=== PATIENT | female | born 1995 | race Caucasian/White ===

== ENCOUNTER 2018-03-08 11:06 | Emergency (ER) | payer BC ==
[~2018-03-08] VITALS: Ht 175.3 cm; Wt 64.5 kg
[~2018-03-08 11:06] MED LIST: ZOFRAN ODT4 MG PO
[2018-03-08 11:14] VITALS: TEMP 99.2
[2018-03-08 11:34] LABS: COLLECTION METHOD CLEAN CATCH
[2018-03-08] MEDS ORDERED: LIALDA 1.2 GM1.2 GM PO (11:40)
[2018-03-08 11:42] LABS: MUCOUS Present /lpf; PH 6 (5-8); SQUAMOUS EPITHELIAL 20-50 /hpf; URINE APPEARANCE Cloudy; URINE BACTERIA Rare /hpf; URINE BILIRUBIN Negative (NEGATIVE); URINE BLOOD 1+ (NEGATIVE); URINE COLOR Yellow; URINE GLUCOSE Negative (NEGATIVE); URINE KETONE Trace (NEGATIVE); URINE LEUKOCYTE ESTERASE 2+ (NEGATIVE); URINE NITRATE Negative (NEGATIVE); URINE PROTEIN(semi-quant) 2+ (NEGATIVE); URINE UROBILINOGEN Negative (NEGATIVE)
[2018-03-08 11:46] LABS: BASO # 0.1 (0.0-0.2); BASO % 0.6 % (0.0-2.0); EOS # 0.9 (0.0-0.7); EOS % 6.4 % (0-4.0); GRAN # 9.7 (1.4-6.5); GRAN % 69.4 % (42.2-75.2); HEMATOCRIT 36.6 % (37.0-47.0); HEMOGLOBIN 12.5 g/dl (12.5-16.0); LYMPH % 14.6 % (20.0-51.0); MEAN CELL VOLUME 91 fl (80.0-100.0); MEAN CORPUSCULAR HEMOGLOBIN 31 pg (27.0-31.0); MEAN CORPUSCULAR HGB CONC 34 g/dl (33.0-37.0); MEAN PLATELET VOLUME 9.1 fl (7.4-10.4); MONO # 1.2 (0.1-0.6); MONO % 8.5 % (1.7-9.3); PLATELET COUNT 356 K/mm3 (130-400); RED BLOOD COUNT 4.01 M/mm3 (4.10-5.30); REDCELL DISTRIBUTION WIDTH-CV 12.2 % (11.5-14.5)
[2018-03-08 12:00] LABS: LIPASE < 10 U/L (23-300)
[2018-03-08 12:01] LABS: ALANINE AMINOTRANSFERASE 26 U/L (9-52); ALBUMIN 3.6 gm/dL (3.5-5.0); ALKALINE PHOSPHATASE 81 U/L (50-136); ANION GAP 13 mmol/L (7-16); AST,SGOT 21 U/L (15-37); BILIRUBIN,TOTAL 0.5 mg/dL (0.0-1.0); BLOOD UREA NITROGEN 6 mg/dL (7-17); C-REACTIVE PROTEIN 4.9 mg/dL (0.0-0.9); CALCIUM 8.7 mg/dL (8.4-10.2); CARBON DIOXIDE 26 mmol/L (22-30); CHLORIDE 101 mmol/L (98-107); CREATININE, serum 0.87 mg/dL (0.52-1.25); GLUCOSE 91 mg/dL (74-106); POTASSIUM 3.3 mmol/L (3.4-5.0); SODIUM 140 mmol/L (137-145); TOTAL PROTEIN 7.5 gm/dL (6.4-8.2)
[2018-03-08 12:29] LABS: BASO % 0.4 % (0.0-2.0); EOS # 0.8 (0.0-0.7); GRAN # 7.6 (1.4-6.5); GRAN % 66.4 % (42.2-75.2); HEMOGLOBIN 10.7 g/dl (12.5-16.0); LYMPH # 1.9 (1.2-3.4); MEAN CELL VOLUME 94 fl (80.0-100.0); MEAN CORPUSCULAR HEMOGLOBIN 32 pg (27.0-31.0); MEAN CORPUSCULAR HGB CONC 34 g/dl (33.0-37.0); MEAN PLATELET VOLUME 9.3 fl (7.4-10.4); MONO % 8.8 % (1.7-9.3); PLATELET COUNT 295 K/mm3 (130-400); RED BLOOD COUNT 3.32 M/mm3 (4.10-5.30); REDCELL DISTRIBUTION WIDTH-CV 12.1 % (11.5-14.5)
[2018-03-08 12:34] LABS: HEMATOCRIT 31.1 % (37.0-47.0)
[2018-03-08 13:21] VITALS: BP 96/64; PULSE 85
[2018-03-08] MEDS ORDERED: ZOFRAN ODT4 MG PO (13:30)
== END 2018-03-08 13:42 | disposition home or self-care (01) ==
LOC: COL.ER 11:06
PROVIDERS: Nurse Practitioner
DX: K92.1 Melena (principal); R10.9 Unspecified abdominal pain; Z90.89 Acquired absence of other organs
CPT/HCPCS: J2930; J7030

== ENCOUNTER 2018-03-10 05:54 | Inpatient (IN) | payer BC ==
[~2018-03-10] VITALS: Ht 175.3 cm; Wt 61.3 kg
[~2018-03-10 05:54] MED LIST changes: +LIALDA 1.2 GM1.2 GM PO
[2018-03-10] MEDS ORDERED: PREDNISONE20 MG (06:06)
[2018-03-10] MEDS ORDERED: ZOFRAN ODT4 MG PO (06:06)
[2018-03-10 06:37] LABS: MEAN CELL VOLUME 94 fl (80.0-100.0); MEAN CORPUSCULAR HEMOGLOBIN 32 pg (27.0-31.0); MEAN CORPUSCULAR HGB CONC 34 g/dl (33.0-37.0); MEAN PLATELET VOLUME 9.6 fl (7.4-10.4); PLATELET COUNT 383 K/mm3 (130-400); RED BLOOD COUNT 3.76 M/mm3 (4.10-5.30); REDCELL DISTRIBUTION WIDTH-CV 12.5 % (11.5-14.5)
[2018-03-10 06:38] LABS: HEMATOCRIT 35.3 % (37.0-47.0)
[2018-03-10 06:51] LABS: ALBUMIN 3.7 gm/dL (3.5-5.0); BILIRUBIN,TOTAL 0.4 mg/dL (0.0-1.0); C-REACTIVE PROTEIN 3.6 mg/dL (0.0-0.9); CALCIUM 8.9 mg/dL (8.4-10.2); CREATININE, serum 0.88 mg/dL (0.52-1.25); POTASSIUM 3.5 mmol/L (3.4-5.0); TOTAL PROTEIN 7.8 gm/dL (6.4-8.2)
[2018-03-10 07:18] LABS: COLLECTION METHOD CLEAN CATCH
[2018-03-10 07:29] LABS: MUCOUS Present /lpf; PH 6 (5-8); URINE APPEARANCE Hazy; URINE BACTERIA Rare /hpf; URINE BILIRUBIN Negative (NEGATIVE); URINE BLOOD Negative (NEGATIVE); URINE COLOR Yellow; URINE GLUCOSE Negative (NEGATIVE); URINE KETONE Negative (NEGATIVE); URINE LEUKOCYTE ESTERASE Negative (NEGATIVE); URINE NITRATE Negative (NEGATIVE); URINE PROTEIN(semi-quant) 2+ (NEGATIVE); URINE UROBILINOGEN Negative (NEGATIVE)
[2018-03-10 08:23] VITALS: BP 102/62; PULSE 58; TEMP 97.9
[2018-03-10 08:35] VITALS: BP 102/62; PULSE 58; TEMP 97.9
[2018-03-10 08:39] LABS: BAND 17 % (0-10); HYPOCHROMIA 1+; LYMPHOCYTE 17 % (20.0-51.0); NEUTROPHILS 59 % (42.0-75.2); PLATELET ESTIMATE INCREASED (NORMAL)
[2018-03-10 12:18] VITALS: BP 113/59; PULSE 55; TEMP 98.4
[2018-03-10 15:57] VITALS: BP 111/61; PULSE 54; TEMP 97.8
[2018-03-10 20:24] VITALS: BP 118/61; PULSE 52; TEMP 98.4
[2018-03-11] VITALS (7 sets, daily range): BP systolic 105–121; BP diastolic 56–68; PULSE 57–78; TEMP 97.7–98.2
[2018-03-11 07:03] LABS: BASO % 0.3 % (0.0-2.0); EOS # 0.1 (0.0-0.7); EOS % 0.5 % (0-4.0); GRAN # 7.2 (1.4-6.5); GRAN % 63.8 % (42.2-75.2); LYMPH # 2.5 (1.2-3.4); LYMPH % 22.5 % (20.0-51.0); MEAN CELL VOLUME 95 fl (80.0-100.0); MEAN CORPUSCULAR HGB CONC 33 g/dl (33.0-37.0); MEAN PLATELET VOLUME 9.3 fl (7.4-10.4); MONO # 1.4 (0.1-0.6); MONO % 12.1 % (1.7-9.3); RED BLOOD COUNT 3.05 M/mm3 (4.10-5.30); REDCELL DISTRIBUTION WIDTH-CV 12.5 % (11.5-14.5)
[2018-03-11 07:10] LABS: HEMOGLOBIN 9.5 g/dl (12.5-16.0); MEAN CORPUSCULAR HEMOGLOBIN 31 pg (27.0-31.0); PLATELET COUNT 276 K/mm3 (130-400)
[2018-03-11 07:18] LABS: CALCIUM 7.8 mg/dL (8.4-10.2); CREATININE, serum 0.84 mg/dL (0.52-1.25); POTASSIUM 3.3 mmol/L (3.4-5.0)
[2018-03-12 04:26] VITALS: BP 118/69; PULSE 63; TEMP 97.9
[2018-03-12] MEDS ORDERED: AZASAN75 MG PO (07:25)
[2018-03-12] MEDS ORDERED: LIALDA 1.2 GM1.2 GM PO (07:26)
[2018-03-12] MEDS ORDERED: PREDNISONE10 MG PO (07:34)
[2018-03-12 08:07] VITALS: BP 119/66; PULSE 76; TEMP 98.1
[2018-03-12 10:48] LABS: HEMOGLOBIN 10.3 g/dl (12.5-16.0); MEAN CELL VOLUME 93 fl (80.0-100.0); MEAN CORPUSCULAR HEMOGLOBIN 32 pg (27.0-31.0); MEAN CORPUSCULAR HGB CONC 34 g/dl (33.0-37.0); MEAN PLATELET VOLUME 9.4 fl (7.4-10.4); PLATELET COUNT 327 K/mm3 (130-400); RED BLOOD COUNT 3.26 M/mm3 (4.10-5.30); REDCELL DISTRIBUTION WIDTH-CV 12.5 % (11.5-14.5)
[2018-03-12 10:56] LABS: CALCIUM 7.9 mg/dL (8.4-10.2); CREATININE, serum 0.74 mg/dL (0.52-1.25); POTASSIUM 3.4 mmol/L (3.4-5.0)
[2018-03-12 10:58] LABS: HEMATOCRIT 30.4 % (37.0-47.0)
[2018-03-12 11:24] LABS: BAND 25 % (0-10); EOSINOPHIL 1 % (0-4); LYMPHOCYTE 16 % (20.0-51.0); NEUTROPHILS 57 % (42.0-75.2); PLATELET ESTIMATE NORMAL (NORMAL)
[2018-03-12 12:13] VITALS: BP 148/80; PULSE 77; TEMP 98.7
== END 2018-03-12 12:50 | disposition home or self-care (01) | DRG 387 ==
LOC: COL.ER 05:54 → MEDICAL 07:45 → COL.ER 07:45 → MEDICAL 07:46
PROVIDERS: Family Medicine; Physician Assistant
DX: K51.311 Ulcerative (chronic) rectosigmoiditis with rectal bleeding (principal); E86.0 Dehydration; D50.9 Iron deficiency anemia, unspecified; E87.6 Hypokalemia
CPT/HCPCS: 99231-AI; 99239; G0378; J2405; J2930; J7030; J7512

== ENCOUNTER → 2018-03-19 | Outpatient (CLI) | payer BC ==
[~2018-03-19] MED LIST changes: +AZASAN75 MG PO; +PREDNISONE10 MG PO; +PREDNISONE20 MG
[2018-03-19 13:00] LABS: C-REACTIVE PROTEIN 3.7 mg/dL (0.0-0.9); CALCIUM 8.7 mg/dL (8.4-10.2); CREATININE, serum 0.77 mg/dL (0.52-1.25); POTASSIUM 4.5 mmol/L (3.4-5.0)
[2018-03-19 13:28] LABS: TSH w REFLEX 1.3 uIU/mL (0.465-4.680)
== END ==
LOC: COL.LAB 09:37
PROVIDERS: Family Medicine
DX: E01.0 Iodine-deficiency related diffuse (endemic) goiter (principal); K51.90 Ulcerative colitis, unspecified, without complications

== ENCOUNTER → 2018-08-26 | Outpatient (CLI) | payer BC ==
[2018-08-26 19:00] LABS: BASO # 0.1 (0.0-0.2); BASO % 0.6 % (0.0-2.0); EOS # 0.3 (0.0-0.7); EOS % 2.8 % (0-4.0); GRAN # 8.1 (1.4-6.5); GRAN % 67.7 % (42.2-75.2); HEMATOCRIT 39.3 % (37.0-47.0); HEMOGLOBIN 12.2 g/dl (12.5-16.0); LYMPH # 2.6 (1.2-3.4); LYMPH % 21.9 % (20.0-51.0); MEAN CELL VOLUME 91 fl (80.0-100.0); MEAN CORPUSCULAR HEMOGLOBIN 28 pg (27.0-31.0); MEAN CORPUSCULAR HGB CONC 31 g/dl (33.0-37.0); MEAN PLATELET VOLUME 11.1 fl (7.4-10.4); MONO # 0.8 (0.1-0.6); MONO % 6.7 % (1.7-9.3); PLATELET COUNT 327 K/mm3 (130-400); RED BLOOD COUNT 4.33 M/mm3 (4.10-5.30); REDCELL DISTRIBUTION WIDTH-CV 17.4 % (11.5-14.5)
[2018-08-26 19:54] LABS: ERYTHROCYTE SEDIMENTATION RATE 11 mm/hr (0-20)
[2018-08-27 12:15] LABS: RHEUMATOID FACTOR-SCREEN <15 IU/mL (0-29)
== END ==
LOC: COL.LAB 18:16
PROVIDERS: Family Medicine
DX: M25.50 Pain in unspecified joint (principal)